=== PATIENT | female | born 1995 | race African-American/Black ===

== ENCOUNTER 2018-07-15 15:59 | Inpatient (IN) | payer MEDICAID, OTHER ==
[~2018-07-15] VITALS: Ht 177.8 cm; Wt 95.3 kg
[2018-07-15 16:07] VITALS: BP 116/72; PULSE 68; Ht 177.8 cm; Wt 95.3 kg
[2018-07-15] MEDS ORDERED: PNV11TAB PO (16:08)
--- NOTE | 2018-07-15 16:23 | HP ---
Date/Time of Note Date/Time of Note DATE: 07/15/18 TIME: 16:17 OB - History Hx of Present Free Text/Dictation 22-year-old female 2 para 0 AB 1 at 40 weeks gestation admitted complaining of onset of uterine contractions last p.m. which became more intense this morning Denies rupture of membrane no vaginal bleed Chief Complaint: Labor contractions Last Menstrual Period: Oct 08, 2017 Estimated Due Date: Jul 15, 2018 : 2 Para: 0 Spontaneous : 1 Care: Good Care Ultrasounds: Normal mid trimester US Obstetrical Complications: None Medical Complications: None Past Family/Social History * Past Medical, Surgical, Family and Obstetric Histories reviewed from chart. Blood Type: A+ Rubella: immune RPR/VDRL: Negative GBS Status: Positive HBsAG: Negative OB Admission Exam Vital Signs Vital Signs Vital Signs Date Temp Pulse Resp B/P (MAP) Pulse Ox O2 O2 Flow FiO2 Time Delivery Rate 07/15/18 98.2 68 116/72 16:07 (87) Physical Exam HEENT: WNL Heart: Rhythm Normal Lungs: Clear, Equal Abdomen: WNL Extremities: Normal Reflexes: Normal Cervical Dilatation: 2cm Effacement: 100% Station: -2 Membranes: Intact Heart Rate: 140's Accelerations: Accelerations Present Decelerations: No Decelerations Varibility: Marked Contractions on Admission: < 5 Minutes Apart Date/Time Contractions Began: 07/15/2018 at 6 AM Frequency of Contractions: Every 2-3 minutes Duration: Over 1 minute Intensity: Firm OB Assessment/Plan Other Assessment: Term gestation in labor pains Other plan: Proceed with labor Vaginal delivery is anticipated MAINE HORTA MD Jul 15, 2018 16:23
[2018-07-15] MEDS ORDERED: OXYTOCIN 30 UNITS/LR 500 ML IV PRN (16:30)
[2018-07-15] MEDS ORDERED: MISOPROSTOL 200 MCG TAB PR PRN (16:30)
[2018-07-15] MEDS ORDERED: LIDOCAINE 1% (MPF) 30 ML INJ INJ PRN (16:30)
[2018-07-15] MEDS ORDERED: BUTORPHANOL 2 MG INJ IV PRN ×2 (16:30)
[2018-07-15] MEDS ORDERED: AMPICILLIN 2 GM/NS (PMX) 100 ML IV ONE (16:30)
[2018-07-15] MEDS ORDERED: OXYTOCIN 30 UNITS/LR 500 ML IV SCH (16:30)
[2018-07-15] MEDS ORDERED: METHYLERGONOVINE 0.2 MG INJ IM PRN (16:30)
[2018-07-15] MEDS ORDERED: CARBOPROST 250 MCG INJ IM PRN (16:30)
[2018-07-15] MEDS: LACTATED RINGER'S 1,000 ML IV SCH ×3 (17:37→18:28)
--- NOTE | 2018-07-15 18:10 | PREAC ---
Date/Time of Note Date/Time of Note DATE: 07/15/18 TIME: 18:09 Anesthesia Eval and Record Evaluation Time Pre-Procedure Interview DATE: 07/15/18 TIME: 18:09 Age 22 Sex female NPO: Other Preoperative diagnosis labor pain Planned procedure epidural Past Medical History Past Medical History: None GI: GERD Surgery & Anesthesia Issues No known issue Meds Anticoagulation: No Beta Rao within 24 hr: No Reason Beta Rao not given: Pt. not on B-Rao Reported Medications [id number] ( 19) 1 Each Tablet, 1 TAB PO DAILY, TAB 07/15/18 Current Medications Lactated Ringer's 1,000 ml @ 125 mls/hr Q8H IV Last administered on 07/15/18at 17:56; Admin Dose 125 MLS/HR; Start 07/15/18 at 16:16 Ampicillin 50 ml @ 100 mls/hr Q4H IV ; Start 07/15/18 at 20:30 Butorphanol Tartrate (Stadol) 1 mg Q2H PRN IV PAIN; Start 07/15/18 at 16:30 Butorphanol Tartrate (Stadol) 2 mg Q2H PRN IV .PAIN; Start 07/15/18 at 16:30 Lidocaine (Xylocaine 1% (Mpf)) 30 ml ONCE PRN INJ .EPISIOTOMY; Start 07/15/18 at 16:30 Oxytocin/Lactated Ringer's 500 ml @ 500 mls/hr ONCE POST IV ; Start 07/15/18 at 16:30 Oxytocin/Lactated Ringer's 500 ml @ 125 mls/hr POST IV ; Start 07/15/18 at 16:30 Oxytocin/Lactated Ringer's 500 ml @ 0 mls/hr ONCE PRN IV .VAGINAL BLEEDING; Start 07/15/18 at 16:30 Methylergonovine Maleate (Methergine) 0.2 mg ONCE PRN IM .VAGINAL BLEEDING; Start 07/15/18 at 16:30 Carboprost Tromethamine (Hemabate) 250 mcg ONCE PRN IM .VAGINAL BLEEDING; Start 07/15/18 at 16:30 Misoprostol (Cytotec) 1,[address] .VAGINAL BLEEDING; Start 07/15/18 at 16:30 Meds reviewed: Yes Allergies Coded Allergies: No Known Allergy (Unverified , 07/15/18) Allergies Reviewed: Yes Labs/Studies Labs Reviewed: Reviewed by anesthesiologist Result Diagram: 07/15/18 1645 Laboratory Tests 07/15/18 16:45 Blood Bank Test 07/15/18 16:45 Antibody Screen NEGATIVE Blood Type A POSITIVE Rh Immune Globulin Candidate NO test: N/A Pre-procedure Exam Last vitals Vital Signs Date Temp Pulse Resp B/P (MAP) Pulse Ox O2 O2 Flow FiO2 Time Delivery Rate 07/15/18 98.2 68 116/72 16:07 (87) Airway: Adequate mouth opening, Adequate thyromental dist Mallampati: Mallampati III Teeth: Normal Lung: Normal Heart: Normal ASA Physical Status ASA physical status: 2 Emergency: None Pre-operative Attestations Prior to commencing anesthesia and surgery, the patient was re-evaluated, there was verification of: *The patient's identity *The results of appropriate recent lab work and preoperative vital signs *The above evaluation not changing prior to induction *Anesthetic plan, risk benefits, alternative and complications discussed with patient/family; questions answered; patient/family understands, accepts and wishes to proceed. QUIN ORDOÑEZ DO Jul 15, 2018 18:10
[2018-07-15] MEDS ORDERED: FENTAnyl 2MCG/ML-ROPIV 0.2% 100 ML ONE (18:12)
[2018-07-15] MEDS ORDERED: FENTAnyl 50 MCG/ML VIAL ONE (18:12)
[2018-07-15] MEDS ORDERED: FAMOTIDINE 20 MG INJ IV ONE (18:30)
[2018-07-15] MEDS ORDERED: NALOXONE (0.4 MG/ML) INJ IV PRN (18:30)
[2018-07-15] MEDS ORDERED: FENTAnyl 2MCG/ML-ROPIV 0.2% 100 ML BAG EPI SCH (18:30)
[2018-07-15] MEDS ORDERED: FAMOTIDINE 20 MG INJ IV PRN (19:00)
[2018-07-15] MEDS: AMPICILLIN 1 GM/NS (PMX) 50 ML IV SCH (22:18)
[2018-07-15] MEDS ORDERED: MINERAL OIL LIGHT 10 ML VIAL TOP PRN (23:30)
--- NOTE | 2018-07-16 00:03 | NSTRPT ---
NST Information Datetime Report Generated by CPN: 07/16/2018 00:02 Datetime: 07/13/2018 10:17 NST Information EGA: 39.5 Test Number: 3 Time on Monitor: 07/13/2018 10:37 Time off Monitor: 07/13/2018 11:04 NST Duration (Min): 27 Reason for NST: Other Reason for NST Other: Poor Maternal Weight Gain Test and Monitor Explained: Monitor Explained; Test Explained; Verbalized Understanding Pulse: 64 Resp: 18 SBP: 109 DBP: 55 Test Evaluation NST Interventions: None Patient States Movement: Present Contraction Frequency: NONE FHR Baseline : 120 Variability: Moderate 6-25bpm Accelerations: 15X15 Decelerations: None FHR Category: Category I NST Results: Reactive Comments: To u/s. ERIK 7.5cm. CEPHALIC. Pt advised to drink more water Electronically Signed By E-Signature: with User ID: [id number] Datetime: 07/10/2018 13:10 NST Information EGA: 39.2 Time off Monitor: 07/10/2018 13:52 NST Duration (Min): 21 Contraction Frequency: none FHR Baseline : 120 Variability: Moderate 6-25bpm Accelerations: 15X15 Decelerations: None FHR Category: Category I NST Results: Reactive Provider Notified: Dr Benjamin reviewed strip prior to discharge Datetime: 07/06/2018 14:10 NST Information EGA: 38.5 NST Duration (Min): 24
[2018-07-16] MEDS: LACTATED RINGER'S 1,000 ML IV SCH (00:11)
[2018-07-16] MEDS: AMPICILLIN 1 GM/NS (PMX) 50 ML IV SCH (03:35)
--- NOTE | 2018-07-16 04:03 | LDN ---
Date/Time of Note Date/Time of Note DATE: 07/16/18 TIME: 03:59 Delivery Summary of normal male (SGA) Weeks of Gestation 40w1d Placenta Delivered: Spontaneously, Intact & Complete Meconium: none Episiotomy: No Perineal laceration: 1 Laceration repair: 000 ch gu rt periurethral Anesthesia type: Epidural Estimated blood loss: 150 Sponge & Needle done & correct: Yes All needle counts correct: Yes Any foreign bodies felt in the: No Delivery Information Sex Sex: male Apgars 1 Minute: 8 5 Minute: 9 Suctioning Nose & mouth suctioned at yessy: Yes Delee suction performed: Yes Umbilical Cord Umbilical cord with: 3 Vessels Cord presentations: no nuchal cord Cord Blood was obtained: Yes Mother & Baby Disposition Disposition Mom & Baby to Maternity; Good: Yes Mom transferred to: Other Baby to NICU: No () PAMELA ALVAREZ MD Jul 16, 2018 04:03
[2018-07-16] MEDS: OXYTOCIN 30 UNITS/LR 500 ML IV SCH ×2 (04:05→08:58)
[2018-07-16] MEDS ORDERED: ONDANSETRON 4 MG INJ IV STA (04:27)
--- NOTE | 2018-07-16 04:42 | PAC ---
Date/Time of Note Date/Time of Note DATE: 07/16/18 TIME: 04:41 Post-Anesthesia Notes Post-Anesthesia Note Last documented vital signs Vital Signs Date Temp Pulse Resp B/P (MAP) Pulse Ox O2 O2 Flow FiO2 Time Delivery Rate 07/16/18 98 70 20 119/62 10 0441 Activity: WNL Respiratory function: WNL Cardiovascular function: WNL Mental status: Baseline Pain reasonably controlled: Yes Hydration appropriate: Yes Nausea/Vomiting absent: Yes QUIN ORDOÑEZ DO Jul 16, 2018 04:42
[2018-07-16 06:10] VITALS: BP 130/70; PULSE 62; RESP 18
[2018-07-16] MEDS: LANOLIN HPA 1 PKT TOP PRN (06:46)
[2018-07-16] MEDS ORDERED: METHYLERGONOVINE 0.2 MG INJ IM PRN (07:00)
[2018-07-16] MEDS ORDERED: WITCH HAZEL/GLYCERIN PAD PR PRN (07:00)
[2018-07-16] MEDS ORDERED: MISOPROSTOL 200 MCG TAB PR PRN (07:00)
[2018-07-16] MEDS ORDERED: CARBOPROST 250 MCG INJ IM PRN (07:00)
[2018-07-16] MEDS ORDERED: BENZOCAINE 20% 56 ML SPRAY TOP PRN (07:00)
[2018-07-16] MEDS ORDERED: OXYTOCIN 30 UNITS/LR 500 ML IV PRN (07:00)
[2018-07-16] MEDS ORDERED: OXYCODONE/ASPIRIN (4.88/325) TAB PO PRN ×2 (07:00)
[2018-07-16] MEDS ORDERED: ZOLPIDEM 5 MG TAB PO PRN (07:00)
[2018-07-16 08:25] VITALS: BP 114/54; PULSE 60; RESP 19
[2018-07-16] MEDS: SENNA/DOCUSATE NA (8.6MG/50MG) TAB PO SCH ×2 (08:57→20:38)
[2018-07-16] MEDS ORDERED: IBUPROFEN 600 MG TAB PO SCH (12:00)
[2018-07-16 12:50] VITALS: BP 119/67; PULSE 65; RESP 17
[2018-07-16] MEDS: IBUPROFEN 600 MG TAB PO SCH ×3 (12:54→23:45)
[2018-07-16] MEDS: CEPHALEXIN 500 MG CAP PO SCH ×2 (14:49→20:38)
[2018-07-16 15:54] VITALS: BP 106/53; PULSE 65; RESP 18
[2018-07-16 19:10] VITALS: BP 112/62; PULSE 76; RESP 18
[2018-07-17] MEDS: CEPHALEXIN 500 MG CAP PO SCH ×4 (03:27→20:45)
[2018-07-17 03:53] VITALS: BP 101/57; PULSE 69; RESP 18
[2018-07-17] MEDS: IBUPROFEN 600 MG TAB PO SCH ×4 (05:43→23:51)
[2018-07-17 07:50] VITALS: BP 136/82; PULSE 72; RESP 20
[2018-07-17] MEDS: SENNA/DOCUSATE NA (8.6MG/50MG) TAB PO SCH ×2 (08:58→20:45)
[2018-07-17 16:20] VITALS: BP 118/63; PULSE 60; RESP 18
--- NOTE | 2018-07-17 16:50 | DS ---
Date/Time of Note Date/Time of Note Home today or next day DATE: 07/17/18 TIME: 16:44 Obstetrical Discharge Record Final Diagnosis Final Diagnosis: Term delivered Other Final Diagnosis Status post vaginal delivery Vaginal Delivery Obstetrical Delivery: Spontaneous, Laceration, Repaired Complications Augmentation: Yes Induction: Yes Condition on Discharge Physical Assessment Last Vitals: See nurse's notes Voiding: Yes Bowel Movement: Yes Breast: Soft, non-tender, Filling Fundus: Firm Abdomen and Incision: Abdomen is soft with firm fundus Episiotomy: Perineum is healing well and appears clean Calf Tenderness: No Patient Condition: Good MAINE HORTA MD Jul 17, 2018 16:50
--- NOTE | 2018-07-17 18:05 | PD.PPDC ---
[facility] [employer] PHYSICIAN Discharge Instruction Provider Information Physician Information 22-year-old female had vaginal delivery Diagnosis [id number] Final Diagnosis: Yuvpe4e Status post vaginal delivery Condition [id number] Patient Condition: Doqsh1u Good Diet [id number] Diet: Hpawf5e Resume Regular Diet Activity/Restrictions Zanez6Rh Activity: [id number] Normal Activity May Shower [id number] Restrictions: Acaef9b Nothing in the Vagina [id number] Return to Work or School: [id number] Sep 03, 2018 Follow-up Follow-up with Physician: 2, 4, Week/Weeks (In clinic) Return to clinic for [id number] OB Instructions: Aaonn5c Breast Tenderness Depression Comment: Pelvic rest for 6 weeks MAINE HORTA MD Jul 17, 2018 18:05
[2018-07-17] MEDS ORDERED: IBUP-1542 PO (18:06)
[2018-07-17] MEDS: LANOLIN HPA 1 PKT TOP PRN (19:52)
[2018-07-17 20:00] VITALS: BP 133/72; PULSE 77; RESP 18
[2018-07-18] MEDS: CEPHALEXIN 500 MG CAP PO SCH ×2 (03:03→09:00)
[2018-07-18 04:00] VITALS: BP 120/70; PULSE 71; RESP 18
[2018-07-18] MEDS: IBUPROFEN 600 MG TAB PO SCH ×2 (06:03→12:11)
[2018-07-18 08:10] VITALS: BP 127/79; PULSE 67; RESP 17
[2018-07-18] MEDS ORDERED: DIPHTH/TET/ACEL PERTUSS (ADULT) 0.5 ML VIAL IM* ONE (09:00)
[2018-07-18] MEDS: SENNA/DOCUSATE NA (8.6MG/50MG) TAB PO SCH (09:00)
[2018-07-18] MEDS: LANOLIN HPA 1 PKT TOP PRN (12:11)
--- NOTE | 2018-07-19 14:40 | DELSUM ---
Delivery Summary A-C Datetime Report Generated by CPN: 07/19/2018 14:40 DELIVERY PERSONNEL Smoking Pipe Maker: Kashmesdras, Lin MATERNAL INFORMATION Delivery Anesthesia: Epidural Medications in Delivery: Pitocin 30 units in LR Delivery QBL (ml): 273 Placenta Cultured: No Maternal Complications: None LABOR SUMMARY EDC: 07/15/2018 00:00 No. Babies in Womb: 1 Attempted: No Labor Anesthesia: Epidural LABOR INFORMATION Reason for Induction: Not Applicable Onset of Labor: 07/15/2018 12:00 Complete Dilatation: 07/16/2018 02:59 Oxytocin: N/A Group B Beta Strep: Positive Antibiotics # of Doses: 2 Antibiotics Time of Last Dose: 07/15/2018 22:17 Steroids Given: None Reason Steroids Not Administered: Not Applicable MEMBRANES Membranes Rupture Method: Spontaneous Rupture of Membranes: 07/16/2018 00:03 Length of Rupture (hr): 3.38 Amniotic Fluid Color: Clear Amniotic Fluid Amount: Small Amniotic Fluid Odor: None STAGES OF LABOR Stage 1 hr: 14 Stage 1 min: 59 Stage 2 hr: 0 Stage 2 min: 27 Stage 3 hr: 0 Stage 3 min: 2 Total Time in Labor hr: 15 Total Time in Labor min: 28 VAGINAL DELIVERY Episiotomy: None Laceration Extension: Second Degree Laceration Type: Perineal; Vaginal Laceration Repair: Yes Initial Vag Sponge Count: 10 Final Vag Sponge Count: 10 Initial Vag Sharps Count: 1 Final Vag Sharps Count: 3 Sponge Count Correct: Yes Sharps Count Correct: Yes BABY A INFORMATION Delivery Date/Time: 07/16/2018 03:26 Method of Delivery: Vaginal Born in Route : No : N/A Forceps: N/A Vacuum Extraction: N/A Shoulder Dystocia : No SHOULDER DYSTOCIA BABY A Delivery Date/Time: 07/16/2018 03:26 PRESENTATION/POSITION BABY A Presentation: Cephalic Cephalic Presentation: Vertex Breech Presentation: N/A PLACENTA INFORMATION BABY A Placenta Delivery Time : 07/16/2018 03:28 Placenta Method of Delivery: Expressed Placenta Status: Delivered SCORES BABY A Heart Rate 1 min: >100 bpm Resp Effort 1 min: Good Cry Reflex Irritability 1 min: Cough/Sneeze/Pulls Away Muscle Tone 1 min: Active Motion Color 1 min: Blue/Pale Resuscitation Effort 1 min: Tactile Stimulation SCORE 1 MIN: 8 Heart Rate 5 min: >100 bpm Resp Effort 5 min: Good Cry Reflex Irritability 5 min: Cough/Sneeze/Pulls Away Muscle Tone 5 min: Active Motion Color 5 min: Body [place], Extremit Blue Resuscitation Effort 5 min: Tactile Stimulation SCORE 5 MIN: 9 INFORMATION BABY A Gestational Age at Delivery: 40.1 Gestational Status: Full Term- 39- 40.6 Weeks Infant Outcome : Liveborn Infant Condition : Stable Infant Sex: Male IDENTIFICATION/MEDS BABY A ID Band Number: [id number] ID Band Location: Right Leg; Left Arm Sensor Applied: Yes Sensor Number: [id number] Sensor Location : Cord Clamp Vitamin K Given : Not Given Erythromycin Given: Not Given WEIGHT/LENGTH BABY A Birthweight (gm): 2640 Weight (lb): 5 Infant Weight (oz): 13 Infant Length (in): 19.00 Length (cm): 48.26 CORD INFORMATION BABY A No. Cord Vessels: 3 Nuchal Cord : N/A Cord Blood Taken: Yes Infant Suction: Mouth; Nose ASSESSMENT BABY A Infant Complications: Extended Bradycardi; Multiple Variable Decels Physical Findings at Delivery: Within Normal Limits Respirations: Appears Normal Staff Nuclear Weapons Officer/ALS Called : Yes Care By: BENY Kenny/Brissa, RT Transferred To: Remains with Mother
== END 2018-07-18 13:50 | disposition home or self-care (01) | DRG 807 ==
LOC: OBT 15:59 → L-D 16:00 → OBT 16:15 → PP1 07-16 06:01
PROVIDERS: ADMIT Obstetrics & Gynecology; ATTEND Obstetrics & Gynecology
PROC: 10E0XZZ Delivery of Products of Conception, External Approach (ICD-10-PCS; principal; 2018-07-16)
PROC: 0UQMXZZ Repair Vulva, External Approach (ICD-10-PCS; 2018-07-16)
DX: O36.5930 Maternal care for other known or suspected poor fetal growth, third trimester, not applicable or unspecified (principal); Z37.0 Single live birth; O71.82 Other specified trauma to perineum and vulva; O99.824 Streptococcus B carrier state complicating childbirth; Z3A.40 40 weeks gestation of pregnancy
CPT/HCPCS: 62322; 80307; 85025; 85610; 85730; 86592; 86850; 86900; 86901; 87340; 99464; G0463; J0290; J2405; J2590; J3010; J7120